=== PATIENT | female | born 2000 | race Caucasian/White ===

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

== ENCOUNTER 2020-04-10 03:49 | Emergency (ER) | payer OTHER, MEDICAID ==
[~2020-04-10] VITALS: Ht 162.6 cm; Wt 77.1 kg
[~2020-04-10 03:49] MED LIST: ALBUTEROL2.5 MG/31 INH; FLONASE 0.05%50 MCG NASAL; PREDNISONE 10 M10 MG; PROAIR HFA8.5 GM; SINGULAIR 10 MG10 M1 PO
[2020-04-10 04:07] LABS: URINE BILIRUBIN NEGATIVE (Negative); URINE BLOOD 3+ (Negative); URINE CLARITY CLEAR; URINE COLOR YELLOW; URINE GLUCOSE-RANDOM NEGATIVE (Negative); URINE KETONES NEGATIVE (Negative); URINE LEUKOCYTES-REFLEX NEGATIVE (Negative); URINE NITRITE-REFLEX NEGATIVE (Negative); URINE PROTEIN TRACE (Negative); URINE SPECIFIC GRAVITY >= 1.030 (1.005-1.030); URINE UROBILINOGEN 0.2 E.U./dl (0.2-1.0)
[2020-04-10 05:04] LABS: BACTERIA-REFLEX >30 Many /HPF (None Seen); MUCUS >6 Heavy strn/LPF (None Seen); SQUAMOUS 0-3 Few /LPF (0-3); TRANSITIONAL EPITHEL CELL 0-3 Few /LPF (None Seen); URINE WBC-REFLEX 6-15 Few /HPF (0-5)
[2020-04-10 05:05] LABS: CRYSTALS None Seen /LPF (None Seen); FINE GRANULAR CASTS 0-3 Few /LPF (None Seen); HYALINE CASTS 0-3 Few /LPF (None Seen)
[2020-04-10 05:18] LABS: ABSOLUTE EOSINOPHILS 0.4 thou/uL (0.0-0.7); ABSOLUTE LYMPHOCYTES 2.1 thou/uL (0.8-5.3); ABSOLUTE MONOCYTES 0.4 thou/uL (0.0-1.2); BASOPHILS 0.6 %; EOSINOPHILS 4.7 %; HEMATOCRIT 31.6 % (37.0-47.0); HEMOGLOBIN 10.4 gm/dL (12.0-15.0); LYMPHOCYTES 26.1 %; MCH 27.6 pg (26.0-34.0); MCHC 32.9 g/dL (28.0-37.0); MCV 83.9 fL (80.0-100.0); MONOCYTES 5.3 %; NUCLEATED RBCS 0 /100WBC; PLATELET COUNT* 325 thou/uL (150-400); POLYS 63.3 %; RBC 3.76 mil/uL (4.20-5.00); RDW-CV 15.4 % (10.5-14.5); WBC 7.9 thou/uL (4.0-11.0)
[2020-04-10 05:28] LABS: CALCIUM 8.6 mg/dL (8.5-10.1); CREATININE 0.7 mg/dL (0.6-1.3); POTASSIUM 3.3 mmol/L (3.5-5.1)
[2020-04-10 05:37] LABS: ALBUMIN 3.6 g/dL (3.4-5.0); TOTAL BILIRUBIN 0.3 mg/dL (<0.1-1.0); TOTAL PROTEIN 7.4 g/dL (6.4-8.2)
[2020-04-10] MEDS ORDERED: CIPROFLOXACIN500 M1 PO (06:56)
[2020-04-10] MEDS ORDERED: ZOFRAN ODT4 MG PO (06:56)
[2020-04-10] MEDS ORDERED: HYDROCODON-ACE1 EAC7 PO (06:56)
[2020-04-10] MEDS ORDERED: FLAGYL500 M1 PO (06:56)
[2020-04-10 07:05] VITALS: BP 132/68
== END 2020-04-10 07:05 | disposition still patient (30) ==
LOC: M.ERS 03:49
PROVIDERS: Personal Emergency Response Attendant
DX: K80.62 Calculus of gallbladder and bile duct with acute cholecystitis without obstruction (principal); J45.909 Unspecified asthma, uncomplicated

== ENCOUNTER 2020-05-24 13:35 | Emergency (ER) | payer BC, OTHER, MEDICAID ==
[~2020-05-24] VITALS: Ht 162.6 cm; Wt 74.8 kg
[~2020-05-24 13:35] MED LIST changes: +CIPROFLOXACIN500 M1 PO; +FLAGYL500 M1 PO; +HYDROCODON-ACE1 EAC7 PO; +ZOFRAN ODT4 MG PO
[2020-05-24] MEDS ORDERED: PENICILLIN VK500 MG PO (14:15)
[2020-05-24] MEDS ORDERED: MEDROLDOSEPACK PO (14:15)
[2020-05-24 14:19] VITALS: BP 140/80
== END 2020-05-24 14:20 | disposition home or self-care (01) ==
LOC: M.ERS 13:35
DX: J02.0 Streptococcal pharyngitis (principal); J45.909 Unspecified asthma, uncomplicated; Z79.899 Other long term (current) drug therapy; Z20.828 Contact with and (suspected) exposure to other viral communicable diseases

== ENCOUNTER 2020-06-07 13:49 | Emergency (ER) | payer BC, OTHER, MEDICAID ==
[~2020-06-07] VITALS: Ht 162.6 cm; Wt 74.8 kg
[~2020-06-07 13:49] MED LIST changes: +MEDROLDOSEPACK PO; +PENICILLIN VK500 MG PO
[2020-06-07] MEDS ORDERED: PREDNISONE 10 M10 M1 PO (14:22)
[2020-06-07 14:34] VITALS: BP 120/70
== END 2020-06-07 14:36 | disposition home or self-care (01) ==
LOC: M.ERS 13:49
DX: L20.9 Atopic dermatitis, unspecified (principal); J45.909 Unspecified asthma, uncomplicated

== ENCOUNTER 2020-12-23 23:20 | Emergency (ER) | payer BC, OTHER, MEDICAID ==
[~2020-12-23] VITALS: Ht 162.6 cm; Wt 72.6 kg
[~2020-12-23 23:20] MED LIST changes: +PREDNISONE 10 M10 M1 PO
[2020-12-24] MEDS ORDERED: MUPIROCIN15 GM TOP (00:32)
[2020-12-24 00:38] VITALS: BP 118/80
== END 2020-12-24 00:40 | disposition home or self-care (01) ==
LOC: M.ERS 23:20
DX: L40.4 Guttate psoriasis (principal); J45.909 Unspecified asthma, uncomplicated; Z79.899 Other long term (current) drug therapy